=== PATIENT | female | born 1990 | race Two or more races ===

== ENCOUNTER 2022-11-20 19:02 | Inpatient (IN) | payer MEDICAID, OTHER ==
[~2022-11-20] VITALS: Ht 157.5 cm; Wt 77.6 kg
[2022-11-20] MEDS ORDERED: MORPHINE SULFATE 4 MG/ML SYR/VIAL IV ONE (19:30)
[2022-11-20] MEDS ORDERED: ONDANSETRON HCL 4 MG/2 ML VIAL IV ONE (19:30)
[2022-11-20] MEDS ORDERED: PANTOPRAZOLE 40 MG/10 ML VIAL INJ IV ONE (19:30)
[2022-11-20] MEDS ORDERED: SODIUM CHLORIDE 0.9% 1,000 ML IVB ONE (19:30)
[2022-11-20 19:59] LABS: Basophils # (auto) 0 10 ^3/uL (0-0.2); Basophils % (auto) 0.2 % (0.0-2.0); Eosinophils # (auto) 0.1 10 ^3/uL (0-0.8); Eosinophils % (auto) 0.9 % (0.0-7.0); Hematocrit 39.3 % (36.0-46.0); Hemoglobin 13.6 g/dL (12.2-16.2); Lymphocytes % (auto) 12.1 % (10.0-50.0); Mean Corpuscular Hemoglobin 28.3 pg (28.0-32.0); Mean Corpuscular Hgb Conc. 34.6 g/dL (32.0-36.0); Mean Corpuscular Volume 81.8 fL (80.0-100.0); Monocytes # (auto) 0.6 10 ^3/uL (0-1.3); Monocytes % (auto) 3.8 % (0.0-12.0); Neutrophils # (auto) 14.1 10 ^3/uL (1.6-8.6); Red Cell Distribution Width 13.6 % (11.8-14.3)
[2022-11-20 20:15] LABS: Albumin 4.2 g/dL (3.4-5.0); Calcium 8.9 mg/dL (8.5-10.1); Potassium 4.1 mmol/L (3.5-5.1)
[2022-11-20 20:20] LABS: BUN/Creatinine Ratio 25.9; Bilirubin, Total 0.5 mg/dL (0.2-1.0)
[2022-11-20] MEDS ORDERED: IBUPROFEN 600 MG TAB PO PRN (22:00)
[2022-11-20] MEDS ORDERED: MORPHINE SULFATE INJ 2 MG/ml SYRG IV PRN ×2 (22:00→23:15)
[2022-11-20] MEDS ORDERED: HYDROcodone-ACET 5/325MG TAB PO PRN (22:00)
[2022-11-20] MEDS ORDERED: ONDANSETRON HCL 4 MG/2 ML VIAL IV PRN (22:00)
[2022-11-20] MEDS ORDERED: cefTRIAXone 1GM/50ML D5W 50 ML IV ONE (22:00)
[2022-11-20] MEDS ORDERED: DOCUSATE SOD 100 MG CAP PO PRN (22:00)
[2022-11-20] MEDS: SODIUM CHLORIDE 0.9% 1,000 ML IV SCH (22:00)
[2022-11-20 22:14] LABS: Urine Bacteria NONE SEEN /hpf (None Seen); Urine Blood Negative /uL (Negative); Urine Mucus FEW (None Seen); Urine WBC 19 /hpf (0 - 5)
[2022-11-20] MEDS ORDERED: NITROGLYCERIN 0.4 MG SL TAB SL PRN (23:15)
[2022-11-21 05:00] LABS: Basophils # (auto) 0.1 10 ^3/uL (0-0.2); Basophils % (auto) 0.7 % (0.0-2.0); Eosinophils # (auto) 0.2 10 ^3/uL (0-0.8); Eosinophils % (auto) 2.1 % (0.0-7.0); Hematocrit 36.2 % (36.0-46.0); Hemoglobin 12.5 g/dL (12.2-16.2); Lymphocytes # (auto) 3.4 10 ^3/uL (0.4-5.4); Lymphocytes % (auto) 29.2 % (10.0-50.0); Mean Corpuscular Hemoglobin 28.5 pg (28.0-32.0); Mean Corpuscular Hgb Conc. 34.6 g/dL (32.0-36.0); Mean Corpuscular Volume 82.3 fL (80.0-100.0); Monocytes # (auto) 0.9 10 ^3/uL (0-1.3); Nucleated Red Blood Cells % 0.1 %; Red Blood Cells 4.39 10^6/uL (4.0-5.20); Red Cell Distribution Width 13.7 % (11.8-14.3); White Blood Cell 11.6 10^3/uL (4.4-10.8)
[2022-11-21 05:18] LABS: Albumin 3.3 g/dL (3.4-5.0); Calcium 8.1 mg/dL (8.5-10.1); Potassium 3.8 mmol/L (3.5-5.1)
[2022-11-21 05:20] LABS: BUN/Creatinine Ratio 25.6
[2022-11-21 05:23] LABS: Bilirubin, Total 0.4 mg/dL (0.2-1.0); Total Protein 6.7 g/dL (6.4-8.2)
[2022-11-21] MEDS: SODIUM CHLORIDE 0.9% 1,000 ML IV SCH (06:15)
[2022-11-21] MEDS: cefTRIAXone 1GM/50ML D5W 50 ML IV SCH (09:47)
[2022-11-21] MEDS: PANTOPRAZOLE 40 MG/10 ML VIAL INJ IV SCH (10:25)
[2022-11-21 12:00] LABS: Albumin 3.5 g/dL (3.4-5.0); Bilirubin, Direct 0.2 mg/dL (0-0.2)
[2022-11-21 12:02] LABS: INR 1.03 (0.9-1.15)
[2022-11-21 12:03] LABS: Bilirubin, Total 0.4 mg/dL (0.2-1.0); Total Protein 6.7 g/dL (6.4-8.2)
[2022-11-21 13:50] VITALS: BP 98/52
[2022-11-21] MEDS: metroNIDAZOLE 500MG/100ML 100 ML IV SCH ×2 (15:17→21:36)
[2022-11-21 16:59] VITALS: BP 104/68
[2022-11-21 17:00] VITALS: BP 104/68
[2022-11-21] MEDS ORDERED: INFLUENZA QUAD 2022-2023 0.5 ML SYRG IM ONE (18:45)
[2022-11-21 20:00] VITALS: BP 105/66
[2022-11-21 22:00] VITALS: BP 105/66
[2022-11-22 05:00] VITALS: BP 94/57
[2022-11-22] MEDS: metroNIDAZOLE 500MG/100ML 100 ML IV SCH ×2 (05:39→14:00)
[2022-11-22 07:21] LABS: Potassium 4.3 mmol/L (3.5-5.1)
[2022-11-22 07:28] LABS: Albumin 3.4 g/dL (3.4-5.0); BUN/Creatinine Ratio 25.5; Bilirubin, Total 0.4 mg/dL (0.2-1.0); Calcium 8.1 mg/dL (8.5-10.1)
[2022-11-22 08:00] VITALS: BP 99/66
[2022-11-22 09:00] VITALS: BP 99/66
[2022-11-22] MEDS: cefTRIAXone 1GM/50ML D5W 50 ML IV SCH (09:51)
[2022-11-22] MEDS: SODIUM CHLORIDE 0.9% 1,000 ML IV SCH (09:51)
[2022-11-22] MEDS: PANTOPRAZOLE 40 MG/10 ML VIAL INJ IV SCH (09:51)
[2022-11-22 13:00] VITALS: BP 110/72
== END 2022-11-22 18:50 | disposition home or self-care (01) ==
LOC: ER 19:02 → OVERFLOW 23:12 → EAST 11-21 14:01 → CENTRAL 11-21 16:55
PROVIDERS: ADMIT Nurse Practitioner Family; ATTEND Internal Medicine
DX: K80.00 Calculus of gallbladder with acute cholecystitis without obstruction (principal); R65.10 Systemic inflammatory response syndrome (SIRS) of non-infectious origin without acute organ dysfunction; E66.01 Morbid (severe) obesity due to excess calories; Z20.822 Contact with and (suspected) exposure to COVID-19; R79.89 Other specified abnormal findings of blood chemistry; Z71.3 Dietary counseling and surveillance; Z68.31 Body mass index [BMI] 31.0-31.9, adult
CPT/HCPCS: 36415; 74181; 76705; 80053; 81001; 81025; 82248; 83036; 83690; 84702; 85025; 85610; 85730; 87081; 87426; 96361; 96365; 96366; 96375; C9113; G0378; J0696; J3490